=== PATIENT | female | born 1985 | race Caucasian/White ===

== ENCOUNTER 2018-07-31 13:57 | Emergency (ER) | payer OTHER ==
[~2018-07-31] VITALS: Ht 160 cm; Wt 68.0 kg
[~2018-07-31 13:57] MED LIST: METH4TAB PO; PHEN37.555 PO; PRD10T PO; TRIA60LO6 TOP
--- OUTSIDE RECORDS SUMMARY | 2018-07-31 14:03 | XMS REPORT | Continuity of Care Document ---
Author Author [facility] Address Unknown Phone Unavailable Allergies Active Description Code Type Severity Reaction Onset Reported/Identified Relationship to Patient Clinical Status Yes Demerol Drug Allergy N/A N/A 06/29/2011 Yes Demerol Drug Allergy 06/29/2011 Yes Diphenhydramine Drug Allergy N/A N/A 01/28/2012 Yes Diphenhydramine Drug Allergy 01/28/2012 Medications There is no data. Problems Date Dx Coded Attending Type Code Diagnosis Diagnosed By 06/29/2011 626.9 UNSPECIFIED DISORDERS OF MENSTRUATION AND OTHER ABNORMAL BLEEDING FROM FEMALE GENITAL TRACT 06/29/2011 706.1 OTHER ACNE 06/29/2011 783.1 ABNORMAL WEIGHT GAIN 06/29/2011 NADEGE CARPIO DO 626.9 UNSPECIFIED DISORDERS OF MENSTRUATION AND OTHER ABNORMAL BLEEDING FROM FEMALE GENITAL TRACT 06/29/2011 NADEGE CARPIO DO 706.1 OTHER ACNE 06/29/2011 NADEGE CARPIO DO 783.1 ABNORMAL WEIGHT GAIN 06/29/2011 626.9 UNSPECIFIED DISORDERS OF MENSTRUATION AND OTHER ABNORMAL BLEEDING FROM FEMALE GENITAL TRACT 06/29/2011 706.1 OTHER ACNE 06/29/2011 783.1 ABNORMAL WEIGHT GAIN 06/29/2011 MARIBETH MEDINA APRN A 626.9 UNSPECIFIED DISORDERS OF MENSTRUATION AND OTHER ABNORMAL BLEEDING FROM FEMALE GENITAL TRACT 06/29/2011 MARIBETH MEDINA APRN A 706.1 OTHER ACNE 06/29/2011 MARIBETH MEDINA APRN A 783.1 ABNORMAL WEIGHT GAIN 08/05/2011 V74.1 TB SCREENING 08/05/2011 NADEGE CARPIO DO V74.1 TB SCREENING 08/05/2011 V74.1 TB SCREENING 08/05/2011 MARIBETH MEDINA APRN A V74.1 TB SCREENING 01/28/2012 692.6 CONTACT DERMATITIS AND OTHER ECZEMA DUE TO PLANTS (EXCEPT FOOD) 01/28/2012 NADEGE CARPIO DO 692.6 CONTACT DERMATITIS AND OTHER ECZEMA DUE TO PLANTS (EXCEPT FOOD) 01/28/2012 692.6 CONTACT DERMATITIS AND OTHER ECZEMA DUE TO PLANTS (EXCEPT FOOD) 01/28/2012 JORDAN MEDINA APRNCHERIE Carter 692.6 CONTACT DERMATITIS AND OTHER ECZEMA DUE TO PLANTS (EXCEPT FOOD) 07/03/2013 JORDAN MEDINA APRNCHERIE Carter 611.72 LUMP OR MASS IN BREAST Procedures Code [place] [id number] ROUTINE VENIPUNCTURE 12/06/2012 [id number] CMP 12/06/2012 Results There is no data. Encounters ACCT No. Visit Date/Time Discharge Status Pt. Type Provider Facility Loc./Unit Complaint [id number] 07/03/2013 14:46:00 07/03/2013 23:59:59 CLS Outpatient JORDAN MEDINA APRNCHERIE Carter [id number] 12/06/2012 09:52:00 12/06/2012 23:59:59 CLS Outpatient NADEGE CARPIO DO [id number] 01/28/2012 12:28:00 01/28/2012 23:59:59 CLS Outpatient [id number] 01/28/2012 12:28:00 01/28/2012 23:59:59 CLS Outpatient [id number] 10/10/2013 10:47:00 10/10/2013 23:59:59 CLS Outpatient
[2018-07-31] MEDS ORDERED: KETOROLAC 60 MG/2 ML VIAL IM ONE (14:15)
[2018-07-31] MEDS ORDERED: ORPHENADRINE 60 MG/2 ML (NORFLEX) AMP IM ONE (14:15)
--- NOTE | 2018-07-31 15:04 | ED Back Pain ---
General Chief Complaint: Back Problems Stated Complaint: BACK PAIN,INJ AT WORK Nursing Triage Note: ARRIVED VIA AMB TO ROOM 08. 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 Nursing Sepsis Screen: No Definite Risk Source of Information: Patient Exam Limitations: No Limitations History of Present Illness Date Seen by Provider: Jul 31, 2018 Time Seen by Provider: 14:05 Allergies and Home Medications Allergies Coded Allergies: Meperidine (Verified Allergy, Unknown, 12/29/05) Home Medications Cyclobenzaprine HCl 5 Mg Tablet, 5 MG PO Q8H Prescribed by: VENUS ROCHA on 07/31/18 1550 Hydrocodone Bit/Acetaminophen 1 Tab Tab, 1-2 EACH PO Q6H PRN for PAIN-MODERATE Prescribed by: VENUS ROCHA on 07/31/18 1550 Prednisone 20 Mg Tab, 40 MG PO DAILY Prescribed by: VENUS ROCHA on 07/31/18 1550 Past Bnneicf-Pcghrh-Gthqdi Hx Patient Social History Alcohol Use: Denies Use Recreational Drug Use: No Smoking Status: Current Everyday Smoker Recent Foreign Travel: No Contact w/Someone Who Travel: No Recent Infectious Disease Expo: No Recent Hopitalizations: No Seasonal Allergies Seasonal Allergies: No Past Medical History Surgeries: No Respiratory: No Cardiac: No Neurological: No Genitourinary: No Gastrointestinal: No Musculoskeletal: No Endocrine: No HEENT: No Cancer: No Psychosocial: No Integumentary: No Physical Exam Vital Signs Vital Signs - First Documented 07/31/18 14:05 Temp 98.0 Pulse 78 Resp 16 B/P (MAP) 157/93 (114) Pulse Ox 98 O2 Delivery Room Air Capillary Refill : Less Than 3 Seconds Height, Weight, BMI Height: 5'3.00" Weight: 150lbs. oz. 68.315068sf; BMI Method:Stated Progress/Results/Core Measures Results/Orders My Orders Orders - VENUS ROCHA Orphenadrine Injection (Norflex Injectio (07/31/18 14:15) Ketorolac Injection (Toradol Injection) (07/31/18 14:15) Ct Lumbar Spine Wo (07/31/18 15:06) Morphine Injection (Morphine Injection (07/31/18 15:15) Medications Given in ED Current Medications Medications Dose Ordered Sig/Deirdre Route Start Time Stop Time Status Last Admin Dose Admin Ketorolac Tromethamine 60 mg ONCE ONCE IM 07/31/18 14:15 07/31/18 14:16 DC 07/31/18 14:22 60 MG Morphine Sulfate 5 mg ONCE ONCE IJ 07/31/18 15:15 07/31/18 15:16 DC 07/31/18 15:42 5 MG Orphenadrine Citrate 60 mg ONCE ONCE IM 07/31/18 14:15 07/31/18 14:16 DC 07/31/18 14:22 60 MG Vital Signs/I&O 07/31/18 14:05 Temp 98.0 Pulse 78 Resp 16 B/P (MAP) 157/93 (114) Pulse Ox 98 O2 Delivery Room Air Blood Pressure Mean: 114 Departure Impression Primary Impression: Bulging lumbar disc Disposition: HOME, SELF-CARE Condition: Stable/Unchanged Departure-Patient Inst. Referrals: NO,LOCAL PHYSICIAN (PCP) Primary Care Physician Patient Instructions: LOCAL PHYSICIAN LIST, Low Back Pain (DC) Add. Discharge Instructions: Take medications as directed. You may use Tylenol and ibuprofen as needed for additional pain relief. Do not exceed your daily limit of Tylenol. Follow-up with a primary care provider within 1 week for recheck. Return back to the emergency room for any worsening symptoms or concerns as needed. All discharge instructions reviewed with patient and/or family. Voiced understanding. Scripts Cyclobenzaprine HCl (Cyclobenzaprine HCl) 5 Mg Tablet 5 MG PO Q8H for Cramps, #14 TAB Prov: VENUS ROCHA 07/31/18 Hydrocodone Bit/Acetaminophen (Hydrocodone/Acetaminophen 5/325mg Tablet) 1 Tab Tab 1-2 EACH PO Q6H PRN for PAIN-MODERATE MDD 10, #20 TAB Prov: VENUS ROCHA 07/31/18 Prednisone (Prednisone) 20 Mg Tab 40 MG PO DAILY for 5 Days, #10 TAB Prov: VENUS ROCHA 07/31/18 Work/School Note: Work Release Form Date Seen in the Emergency Department: Jul 31, 2018 Return to Work: Aug 01, 2018 Restrictions: Follow Up With [facility] Other Restrictions Listed Below: No heavy lifting. Maximum 15 pounds. VENUS ROCHA Jul 31, 2018 15:04
[2018-07-31] MEDS ORDERED: morphine INJ 10 MG/ML 1ML (SYR OR VIAL) IJ ONE (15:15)
--- NOTE | 2018-07-31 15:31 | Diagnostic Imaging Report ---
PROCEDURE: CT lumbar spine without contrast. TECHNIQUE: Multiple contiguous axial images were obtained through the lumbar spine without the use of intravenous contrast. Sagittal and coronal reformations were then performed. INDICATION: Lifting injury, back pain radiating down the left leg. FINDINGS: Lumbar body heights are maintained, their alignment is anatomic. The L5-S1 disc reveals slight stature loss and mild circumferential bulge but no resultant canal, foraminal or recess stenosis. The remaining discs are nondisplaced and there is no bony soft tissue or osseous lumbar stenosis. No fracture or endplate destruction or malalignment. The pedicles and pars were intact. No paravertebral mass, hemorrhage or fluid collection. IMPRESSION: Mild generalized bulging of the L5-S1 disc without focal herniation or resultant stenosis. Normal alignment. No acute bony pathology. Dictated by: Dictated on workstation # [id number]
[2018-07-31] MEDS ORDERED: PRD20T PO (15:50)
[2018-07-31] MEDS ORDERED: ACHD5005 PO (15:50)
[2018-07-31] MEDS ORDERED: CYCL5TAB PO (15:50)
[2018-07-31 16:08] VITALS: BP 126/74
== END 2018-07-31 16:08 | disposition home or self-care (01) ==
LOC: EDUNIT# 13:57 → ER 14:00
DX: M51.26 Other intervertebral disc displacement, lumbar region (principal); F17.200 Nicotine dependence, unspecified, uncomplicated; Z88.8 Allergy status to other drugs, medicaments and biological substances; Z79.52 Long term (current) use of systemic steroids; X50.0XXA Overexertion from strenuous movement or load, initial encounter; Y92.59 Other trade areas as the place of occurrence of the external cause; Y99.0 Civilian activity done for income or pay
CPT/HCPCS: 72131